=== PATIENT | female | born 1955 | race American Indian/Alaskan Native ===

== ENCOUNTER 2018-09-25 06:00 | Day surgery (SDC) | payer OTHER ==
[2018-09-22 13:22] VITALS: BMI 28.3
[2018-09-25 07:14] LABS: BLOOD UREA NITROGEN 12 mg/dl (7-17); GFR NON-AFRICAN AMERICAN > 60
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
[2018-09-25] MEDS ORDERED: Lactated Ringer's 1,000 ML IV ONE ×2 (08:00→13:20)
[2018-09-25] MEDS ORDERED: Bupivacaine HCl 0.5% PF (30 ml) Inj ONE (08:08)
[2018-09-25] MEDS ORDERED: Lidocaine Hydrochloride 0 ML INJ ONE (08:08)
[2018-09-25] MEDS ORDERED: Rocuronium 10 mg/ml (5 ml) ONE (09:35)
[2018-09-25] MEDS ORDERED: Midazolam 2 MG/2 ML VIAL ONE (09:35)
[2018-09-25] MEDS ORDERED: Succinylcholine 200 mg/10 ml Inj IV ONE (09:35)
[2018-09-25] MEDS ORDERED: Propofol 10 mg/ml Inj (20 ML) ONE (09:35)
[2018-09-25] MEDS ORDERED: Lidocaine 4% (Laryng-O-Jet) Kit MM ONE (09:36)
[2018-09-25] MEDS ORDERED: Dexamethasone 4 mg/1 ml ONE (10:04)
[2018-09-25] MEDS ORDERED: Desflurane Inhalation Anesthetic Liq (240 ml) ONE (10:49)
[2018-09-25] MEDS ORDERED: Neostigmine 1:1000 (1 mg/ml) Inj ONE (11:30)
[2018-09-25] MEDS ORDERED: Bupivacaine 0.5% Inj(30mL) IJ ONE (11:30)
[2018-09-25] MEDS ORDERED: Oxycodone/Acetaminophen 5/325 mg Tab PO PRN (11:59)
--- NOTE | 2018-09-25 11:59 | PCM.SURG1 ---
Surgeon's Initial Post Op Note - Surgeon's Notes Surgeon: Enzo Career Development Associate: YAA Ko Type of Anesthesia: General Endo Pre-Operative Diagnosis: displaced 4th metacarpal fracture Operative Findings: as above Post-Operative Diagnosis: as above Operation Performed: ORIF displaced 4th metacarpal fracture. repair 4th tendon and junctura tendinae. allograft/autograft bone graft. applx short arm volar splint. positiong of fluoro/interpretation of video images Specimen/Specimens Removed: marlin/wilfred Estimated Blood Loss: EBL {In ML}: 15 Blood Products Given: N/A Drains Used: No Drains Post-Op Condition: Fair Date of Surgery/Procedure: 09/25/18 Time of Surgery/Procedure: 10:35 (time in room/anaesthesia induction time)
[2018-09-25] MEDS ORDERED: Lactated Ringer's 1,000 ML IV SCH (12:00)
[2018-09-25] MEDS ORDERED: Dexamethasone 4 mg/1 ml IVP PRN (12:28)
[2018-09-25] MEDS: HYDROmorphone 0.5 mg/0.5 ml ISec IVP PRN ×2 (13:20→13:50)
--- NOTE | 2018-09-25 13:28 | RAD ---
PROCEDURE: Left Hand Radiographs. HISTORY: s/p L 4th MCP ORIF COMPARISON: None. FINDINGS: BONES: Status post open reduction and internal fixation of acute oblique fracture in the midshaft of the 4th metacarpal with metallic plate and screws. There is near normal alignment of fracture fragments. JOINTS: Normal. No osteoarthritic changes. SOFT TISSUES: Expected postoperative changes in the periarticular soft tissues. OTHER FINDINGS: None. IMPRESSION: Status post open reduction and internal fixation of acute oblique fracture in the 4th metacarpal with metallic plate and screws. Near normal bone alignment. No evidence for acute complications..
[2018-09-25 15:04] VITALS: RESP 18
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
[2018-09-25 17:40] VITALS: BP 124/68; PULSE 99; TEMP 97.6; O2SAT 98
--- NOTE | 2018-09-26 11:45 | RAD ---
Date of service: 09/25/2018 PROCEDURE: Intraoperative Fluoroscopy. HISTORY: LEFT HAND FINDINGS: Fluoroscopic assistance was provided. Please refer to the operative report from [facility].
== END 2018-09-25 17:50 | disposition home or self-care (01) ==
LOC: H.OPSURG 06:00
PROVIDERS: ATTEND Orthopaedic Surgery
DX: S62.305A Unspecified fracture of fourth metacarpal bone, left hand, initial encounter for closed fracture (principal); X58.XXXA Exposure to other specified factors, initial encounter; M19.90 Unspecified osteoarthritis, unspecified site; E11.9 Type 2 diabetes mellitus without complications; E78.5 Hyperlipidemia, unspecified; I10 Essential (primary) hypertension
CPT/HCPCS: 26412; 26615; 36415; 73130; 80048; 88305; J0330; J0690; J1100; J1170; J2001; J2250; J2405; J2704; J2710; J3010; J7120